=== PATIENT | female | born 1975 | race American Indian/Alaskan Native ===

== ENCOUNTER 2017-12-13 05:44 | Emergency (ER) | payer MEDICARE, OTHER ==
[2017-12-13 06:38] VITALS: BP 121/66
[2017-12-13] MEDS ORDERED: NACL 0.9% 1000 ML 1,000 ML IV ONE (06:38)
[2017-12-13 07:05] LABS: Bilirubin,Urine NEG (Negative); Blood,Urine NEG (Negative); Color,Urine Yellow (Yellow); HCG Qualitative,Urine Negative (Negative); Protein,Urine <15 mg/dL mg/dL (Negative); Urobilinogen,Urine < 2.0 mg/dL (<2.0); WBC,Urine < 1.0 /HPF (0.0-6.0)
== END 2017-12-13 19:20 | disposition left against medical advice (07) ==
LOC: ED 05:44
DX: R10.9 Unspecified abdominal pain (principal); Z53.21 Procedure and treatment not carried out due to patient leaving prior to being seen by health care provider
CPT/HCPCS: 81001; 81025

== ENCOUNTER 2018-05-20 13:47 | Emergency (ER) | payer MEDICARE, OTHER ==
[2018-05-20 14:19] VITALS: BP 128/73
--- NOTE | 2018-05-20 15:42 | Emergency Department Report ---
- General Chief Complaint: Upper Respiratory Infection Stated Complaint: FLU SYMPTOMS/SOB Time Seen by Provider: 05/20/18 15:06 Source: patient Mode of arrival: Ambulatory Limitations: No Limitations - History of Present Illness Initial Comments: 43-year-old female with a past medical history htn and hyperlipidemia presents to the Hospital complaining of URI symptoms 2 weeks. She's had a productive cough, sneezing, stuffy nose, and sinus congestion. She states taking TheraFlu and Mucinex without improvement. A child in the family and RSV several other family had cold symptoms. Patient complains of intermittent wheezing and shortness of breath. She denies a history of asthma or tobacco use. Has had wheezing with bronchitis in the past. No fever reported. Pulse ox 96% on room air not 20 as documented by triage.. - Related Data Home Medications Medication Instructions Recorded Confirmed Last Taken Atorvastatin Calcium [Lipitor] 10 mg PO QDAY 03/29/14 03/29/14 Unknown Bromocriptine [Parlodel] 10 mg PO QDAY 03/29/14 03/29/14 Unknown Doxepin HCl 50 mg PO QHS 03/29/14 03/29/14 Unknown Eszopiclone 2 mg PO QHS 03/29/14 03/29/14 Unknown Naproxen [Naprosyn TAB] 500 mg PO BID PRN 03/29/14 03/29/14 Unknown Topiramate [Topamax TAB] 25 mg PO QAM 03/29/14 03/29/14 Unknown Topiramate [Topamax TAB] 50 mg PO QHS 03/29/14 03/29/14 Unknown lamoTRIgine [LaMICtal] 75 mg PO QHS 03/29/14 03/29/14 Unknown traZODone [Desyrel] 50 mg PO QHS 03/29/14 03/29/14 Unknown Previous Rx's Medication Instructions Recorded Last Taken Type Albuterol Sulfate [Ventolin HFA] 2 puff IH Q4H PRN #1 hfa.aer.ad 05/20/18 Unknown Rx Azithromycin [Zithromax Z-RAE] 1 dose PO DAILY 5 Days tab 05/20/18 Unknown Rx Benzonatate [Tessalon Perles] 1 - 2 tab PO Q8HR PRN #30 capsule 05/20/18 Unknown Rx Prednisone [predniSONE 10 mg 10 mg PO .TAPER #1 tab.ds.pk 05/20/18 Unknown Rx (6-Day Pack, 21 Tabs)] Sodium Chloride [Saline Nasal 2 ml NS PRN PRN #1 bottle 05/20/18 Unknown Rx [place]] Allergies Allergy/AdvReac Type Severity Reaction Status Date / Time aripiprazole [From Abilify] AdvReac SPASMS Verified 03/29/14 15:43 codeine AdvReac Swelling Verified 03/29/14 15:43 fluphenazine enanthate AdvReac THRUSH Verified 03/29/14 15:43 [From Prolixin] fluphenazine HCl AdvReac THRUSH Verified 03/29/14 15:43 [From Prolixin] ED Review of Systems ROS: Stated complaint: FLU SYMPTOMS/SOB Other details as noted in HPI Comment: All other systems reviewed and negative ED Past Medical Hx - Past Medical History Hx Hypertension: Yes Hx Psychiatric Treatment: Yes Additional medical history: Hyperlipidemia. Galactorrhea - Surgical History Hx Cholecystectomy: Yes (09/2012) Additional Surgical History: Hernia repair. Liposuction - Social History Smoking Status: Unknown if ever smoked Substance Use Type: None - Medications Home Medications: Home Medications Medication Instructions Recorded Confirmed Last Taken Type Atorvastatin Calcium [Lipitor] 10 mg PO QDAY 03/29/14 03/29/14 Unknown History Bromocriptine [Parlodel] 10 mg PO QDAY 03/29/14 03/29/14 Unknown History Doxepin HCl 50 mg PO QHS 03/29/14 03/29/14 Unknown History Eszopiclone 2 mg PO QHS 03/29/14 03/29/14 Unknown History Naproxen [Naprosyn TAB] 500 mg PO BID PRN 03/29/14 03/29/14 Unknown History Topiramate [Topamax TAB] 25 mg PO QAM 03/29/14 03/29/14 Unknown History Topiramate [Topamax TAB] 50 mg PO QHS 03/29/14 03/29/14 Unknown History lamoTRIgine [LaMICtal] 75 mg PO QHS 03/29/14 03/29/14 Unknown History traZODone [Desyrel] 50 mg PO QHS 03/29/14 03/29/14 Unknown History Albuterol Sulfate [Ventolin HFA] 2 puff IH Q4H PRN #1 hfa.aer.ad 05/20/18 Unknown Rx Azithromycin [Zithromax Z-RAE] 1 dose PO DAILY 5 Days tab 05/20/18 Unknown Rx Benzonatate [Tessalon Perles] 1 - 2 tab PO Q8HR PRN #30 capsule 05/20/18 Unknown Rx Prednisone [predniSONE 10 mg 10 mg PO .TAPER #1 tab.ds.pk 05/20/18 Unknown Rx (6-Day Pack, 21 Tabs)] Sodium Chloride [Saline Nasal 2 ml NS PRN PRN #1 bottle 05/20/18 Unknown Rx [place]] ED Physical Exam - General Limitations: No Limitations - Other Other exam information: General: No limitations, patient is alert in no acute distress Head exam: Atraumatic, normocephalic Eyes exam: Normal appearance, pupils equal reactive to light, extraocular movements intact ENT: Moist mucous membrane, normal oropharynx. Mild bilateral maxillary sinus tenderness. Nasal congestion Neck exam: Normal inspection, full range of motion, no meningismus nontender Respiratory exam: Clear to auscultation bilateral, no wheezes, rales, crackles Cardiovascular: Normal rate and rhythm, normal heart sounds Abdomen: Soft, nondistended, and nontender, with normal bowel sounds, no rebound, or guarding Extremity: Full range of motion normal inspection no deformity Back: Normal Inspection, full range of motion, no tenderness Neurologic: Alert, oriented x3, cranial nerves intact, no motor or sensory deficit Psychiatric: normal affect, normal mood Skin: Warm, dry, intact ED Course Vital Signs 05/20/18 14:16 Temperature 97.9 F Pulse Rate 90 Respiratory 20 Rate Blood Pressure 128/73 O2 Sat by Pulse 20 L Oximetry ED Medical Decision Making - Radiology Data Radiology results: report reviewed cxr: naf - Differential Diagnosis bronchitis, URI, sinusitis Critical Care Time: No Critical care attestation.: If time is entered above; I have spent that time in minutes in the direct care of this critically ill patient, excluding procedure time. ED Disposition Clinical Impression: Acute bronchitis, Sinusitis, URI (upper respiratory infection) Disposition: TO HOME OR SELFCARE Is pt being admited?: No Does the pt Need Aspirin: No Condition: Stable Instructions: Acute Bronchitis (ED), Sinusitis (ED) Additional Instructions: Take the medication as prescribed. Follow up with your doctor or the doctor/clinic provided. Return if symptoms worsen as indicated by your discharge instructions Prescriptions: Albuterol Sulfate [Ventolin HFA] 2 puff IH Q4H PRN #1 hfa.aer.ad PRN Reason: Shortness Of Breath Azithromycin [Zithromax Z-RAE] 1 dose PO DAILY 5 Days tab Benzonatate [Tessalon Perles] 1 - 2 tab PO Q8HR PRN #30 capsule PRN Reason: Cough Prednisone [predniSONE 10 mg (6-Day Pack, 21 Tabs)] 10 mg PO .TAPER #1 tab.ds.pk Sodium Chloride [Saline Nasal [place]] 2 ml NS PRN PRN #1 bottle PRN Reason: Nasal Congestion Referrals: PRIMARY CAREMD [Primary Care Provider] - 3-5 Days [facility] [Provider Group] - 3-5 Days SHRUTHI SIMPSON MD [Staff Physician] - 3-5 Days Time of Disposition: 16:49
--- NOTE | 2018-05-20 16:16 | XRay Report ---
FINAL REPORT EXAM: XR CHEST ROUTINE 2V HISTORY: cough TECHNIQUE: Frontal and lateral chest radiographs. PRIORS: None. FINDINGS: The cardiomediastinal silhouette is normal. No focal consolidation. No pleural effusion. No pneumothorax. No acute osseous abnormality. IMPRESSION: No acute cardiopulmonary process.
== END 2018-05-20 17:01 | disposition home or self-care (01) ==
LOC: ED 13:47
DX: J20.9 Acute bronchitis, unspecified (principal); J32.0 Chronic maxillary sinusitis; J06.9 Acute upper respiratory infection, unspecified; I10 Essential (primary) hypertension; E78.5 Hyperlipidemia, unspecified; Z90.49 Acquired absence of other specified parts of digestive tract; Z88.6 Allergy status to analgesic agent; Z88.8 Allergy status to other drugs, medicaments and biological substances
CPT/HCPCS: 71046; 99283

== ENCOUNTER 2019-06-10 03:31 | Emergency (ER) | payer MEDICARE, OTHER | END 2019-06-10 03:45 | disposition left against medical advice (07) | LOC: ED 03:31 | DX: R69 Illness, unspecified (principal); Z53.21 Procedure and treatment not carried out due to patient leaving prior to being seen by health care provider ==

== ENCOUNTER 2019-06-11 03:01 | Emergency (ER) | payer MEDICARE, OTHER | END 2019-06-11 03:21 | LOC: ED 03:01 | DX: Z32.00 Encounter for pregnancy test, result unknown (principal); Z53.21 Procedure and treatment not carried out due to patient leaving prior to being seen by health care provider ==

== ENCOUNTER 2019-06-11 23:54 | Emergency (ER) | payer MEDICARE, OTHER ==
[2019-06-12 01:04] LABS: Bilirubin,Urine NEG (Negative); Blood,Urine MOD (Negative); Color,Urine Colorless (Yellow); Protein,Urine <15 mg/dL mg/dL (Negative); Urobilinogen,Urine < 2.0 mg/dL (<2.0); WBC,Urine < 1.0 /HPF (0.0-6.0)
[2019-06-12 01:09] LABS: Amphetamine Screen,Urine PRESUMPTIVE NEGATIVE; Benzodiazepines Screen,Urine PRESUMPTIVE NEGATIVE; Cannabinoid Screen,Urine PRESUMPTIVE NEGATIVE; Cocaine Screen,Urine PRESUMPTIVE NEGATIVE; Methadone Screen,Urine PRESUMPTIVE NEGATIVE; Opiate Screen,Urine PRESUMPTIVE NEGATIVE
[2019-06-12 01:22] LABS: RBC,Urine < 1.0 /HPF (0.0-6.0)
[2019-06-12] MEDS ORDERED: LORazepam 2 MG/ML VIAL IM PRN (01:38)
[2019-06-12] MEDS ORDERED: HALOPERIDOL LACTATE 5 MG/1 ML INJ IM PRN (01:38)
[2019-06-12] MEDS ORDERED: LORazepam 2 MG/ML VIAL ONE (01:40)
[2019-06-12] MEDS ORDERED: HALOPERIDOL LACTATE 5 MG/1 ML INJ ONE (01:40)
--- NOTE | 2019-06-12 01:40 | Emergency Department Report ---
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 She is not known to myself previously. She apparently has a history of hypertension, and psychosis. The patient presents to this emergency room very disorganized. Apparently, she has been here multiple times over the past few days, walking in and out of the waiting room. As per verbal report from nursing team, patient would intermittently become angry, verbally belligerent, and she would look over other patients shoulders while they were at the registration window registering. Apparently, she came to the ER stating that she was . I asked the [place] why she came here for test when she could purchase a test [id number], and she was not able to answer my question. She stated that "I have insurance, and God will take care of it." She also states that she lives "in [facility]." She further states "I do not have to answer any of your questions because I do not answer to you." She is not accompanied by friends or family at this time. The patient does not respond to verbal de-escalation techniques or verbal show of force. She appears to be floridly psychotic, and has not demonstrated the ability to independently care for herself. She does not have rational decision-making capability at this time. She is not able to describe exacerbating or relieving factors, or qualitative nature of her symptoms. -: unknown Radiation: other Quality: other Consistency: other Improves with: other Worsens with: other - Related Data Home Medications Medication Instructions Recorded Confirmed Last Taken Atorvastatin Calcium [Lipitor] 10 mg PO QDAY 03/29/14 06/13/19 Unknown Bromocriptine [Parlodel] 10 mg PO QDAY 03/29/14 06/13/19 Unknown Doxepin HCl 50 mg PO QHS 03/29/14 06/13/19 Unknown Eszopiclone 2 mg PO QHS 03/29/14 06/13/19 Unknown Naproxen [Naprosyn TAB] 500 mg PO BID PRN 03/29/14 06/13/19 Unknown Topiramate [Topamax TAB] 25 mg PO QAM 03/29/14 06/13/19 Unknown Topiramate [Topamax TAB] 50 mg PO QHS 03/29/14 06/13/19 Unknown lamoTRIgine [LaMICtal] 75 mg PO QHS 03/29/14 06/13/19 Unknown traZODone [Desyrel] 50 mg PO QHS 03/29/14 06/13/19 Unknown Previous Rx's Medication Instructions Recorded Last Taken Type Albuterol Sulfate [Ventolin HFA] 2 puff IH Q4H PRN #1 hfa.aer.ad 05/20/18 Unknown Rx Azithromycin [Zithromax Z-REA] 1 dose PO DAILY 5 Days tab 05/20/18 Unknown Rx Benzonatate [Tessalon Perles] 1 - 2 tab PO Q8HR PRN #30 capsule 05/20/18 Unknown Rx Prednisone [predniSONE 10 mg 10 mg PO .TAPER #1 tab.ds.pk 05/20/18 Unknown Rx (6-Day Pack, 21 Tabs)] Sodium Chloride [Saline Nasal 2 ml NS PRN PRN #1 bottle 05/20/18 Unknown Rx [place]] Allergies Allergy/AdvReac Type Severity Reaction Status Date / Time aripiprazole [From Abilify] AdvReac SPASMS Verified 03/29/14 15:43 codeine AdvReac Swelling Verified 03/29/14 15:43 fluphenazine enanthate AdvReac THRUSH Verified 03/29/14 15:43 [From Prolixin] fluphenazine HCl AdvReac THRUSH Verified 03/29/14 15:43 [From Prolixin] ED Review of Systems ROS: Stated complaint: MH EVALUATION Other details as noted in HPI Comment: Unobtainable due to pts medical conditions (The patient denies physical pain and insists that she is ) ED Past Medical Hx - Past Medical History Previous Medical History?: No Hx Hypertension: No Hx Psychiatric Treatment: No Additional medical history: Pt denies any hx. - Surgical History Past Surgical History?: No Hx Cholecystectomy: Yes (09/2012) Additional Surgical History: Hernia repair. Liposuction. Pt denies hx. - Social History Smoking Status: Never Smoker Substance Use Type: None - Medications Home Medications: Home Medications Medication Instructions Recorded Confirmed Last Taken Type Atorvastatin Calcium [Lipitor] 10 mg PO QDAY 03/29/14 06/13/19 Unknown History Bromocriptine [Parlodel] 10 mg PO QDAY 03/29/14 06/13/19 Unknown History Doxepin HCl 50 mg PO QHS 03/29/14 06/13/19 Unknown History Eszopiclone 2 mg PO QHS 03/29/14 06/13/19 Unknown History Naproxen [Naprosyn TAB] 500 mg PO BID PRN 03/29/14 06/13/19 Unknown History Topiramate [Topamax TAB] 25 mg PO QAM 03/29/14 06/13/19 Unknown History Topiramate [Topamax TAB] 50 mg PO QHS 03/29/14 06/13/19 Unknown History lamoTRIgine [LaMICtal] 75 mg PO QHS 03/29/14 06/13/19 Unknown History traZODone [Desyrel] 50 mg PO QHS 03/29/14 06/13/19 Unknown History Albuterol Sulfate [Ventolin HFA] 2 puff IH Q4H PRN #1 hfa.aer.ad 05/20/18 06/13/19 Unknown Rx Azithromycin [Zithromax Z-RAE] 1 dose PO DAILY 5 Days tab 05/20/18 06/13/19 Unknown Rx Benzonatate [Tessalon Perles] 1 - 2 tab PO Q8HR PRN #30 capsule 05/20/18 06/13/19 Unknown Rx Prednisone [predniSONE 10 mg 10 mg PO .TAPER #1 tab.ds.pk 05/20/18 06/13/19 Un known Rx (6-Day Pack, 21 Tabs)] Sodium Chloride [Saline Nasal 2 ml NS PRN PRN #1 bottle 05/20/18 06/13/19 Unknown Rx [place]] ED Physical Exam - General Limitations: Other (Patient is psychotic and disorganized, and initially refuses examination) General appearance: in no apparent distress, anxious, obese - Head Head exam: Present: atraumatic, normocephalic - Eye Eye exam: Present: normal appearance, EOMI. Absent: nystagmus - ENT ENT exam: Present: normal exam, normal orophraynx, mucous membranes moist, normal external ear exam - Neck Neck exam: Present: normal inspection, full ROM. Absent: tenderness, meningismus - Respiratory Respiratory exam: Present: normal lung sounds bilaterally. Absent: respiratory distress - Cardiovascular Cardiovascular Exam: Present: regular rate, normal rhythm, normal heart sounds. Absent: bradycardia, tachycardia, irregular rhythm, systolic murmur, diastolic murmur, rubs, gallop - GI/Abdominal GI/Abdominal exam: Present: soft. Absent: distended, tenderness, guarding, rebound, rigid, pulsatile mass - Extremities Exam Extremities exam: Present: normal inspection, full ROM, other (2+ pulses noted in the bilateral upper and lower extremities. There is no palpable cord. negative [place] sign. Muscular compartments are soft. The pelvis is stable.). Absent: pedal edema, calf tenderness - Back Exam Back exam: Present: normal inspection, full ROM. Absent: tenderness, CVA tenderness (R), CVA tenderness (L), paraspinal tenderness, vertebral tenderness - Neurological Exam Neurological exam: Present: alert (Patient is alert to name, month and location. The patient's thought processes are logical. The patient does not demonstrate decision-making capacity. She will not comment on homicidality, suicidality or hallucinations), other (There is no facial droop. The tongue is midline. The extraocular movements are intact bilaterally. Moving 4 extremities spontaneously, speaking in complete sentences, although thought content nonsensical and illogical) - Psychiatric Psychiatric exam: Present: agitated, anxious - Skin Skin exam: Present: warm, dry, intact, normal color. Absent: rash ED Course Vital Signs 06/12/19 06/12/19 06/12/19 01:38 02:43 19:45 Temperature 97.6 F 98.5 F Pulse Rate 72 68 Respiratory 18 16 20 Rate Blood Pressure 102/39 107/41 [Right] O2 Sat by Pulse 95 97 100 Oximetry - Reevaluation(s) Reevaluation #1: 06/12/19 02:29 Differential diagnosis, including but not limited to: Psychosis, disorganized behavior, medical clearance for psychiatric placement Assessment and plan: 44-year-old female who is obviously psychotic, requires emergent psychiatric consultation and stabilization. She is placed on a 1013. She requires medication with haloperidol and Ativan to obtain vital signs, and acquire emergent diagnostic laboratory studies to exclude time sensitive toxicologic ingestions. Attempted to explain this to the patient, but she indicated that she would stop listening to me, and she does not exhibit decision-making capacity at this time. Laboratory studies, vital signs, psychiatric consultation pending. Reevaluation #2: 06/12/19 04:10 Patient resting comfortably 4 hours, in no acute distress. Laboratory studies reviewed and appreciated. They are fairly unremarkable. Patient will be initiated on potassium replacement therapy orally. CK of 500 reviewed and appreciated, not consistent with rhabdomyolysis, and will decrease on its own with rest and oral hydration, does not require additional intervention at this time. At this point in time, patient does not appear to have an immediate medical contraindication To psychiatric admission, evaluation, consultation and placement. ED Medical Decision Making - Lab Data Result diagrams: 06/12/19 03:24 06/12/19 03:24 Vital Signs 06/12/19 02:43 Temperature 97.6 F Pulse Rate 72 Respiratory 16 Rate Blood Pressure 102/39 [Right] O2 Sat by Pulse 97 Oximetry Lab Results 06/12/19 06/12/19 06/12/19 Range/Units 00:15 00:15 01:39 WBC (4.5-11.0) K/mm3 RBC (3.65-5.03) M/mm3 Hgb (10.1-14.3) gm/dl Hct (30.3-42.9) % MCV (79-97) fl MCH (28-32) pg MCHC (30-34) % RDW (13.2-15.2) % Plt Count (140-440) K/mm3 Sodium (137-145) mmol/L Chloride (98-107) mmol/L Carbon Dioxide (22-30) mmol/L Anion Gap mmol/L BUN (7-17) mg/dL Creatinine (0.7-1.2) mg/dL Estimated GFR ml/min BUN/Creatinine Ratio % Glucose (65-100) mg/dL Calcium (8.4-10.2) mg/dL Magnesium (1.7-2.3) mg/dL Total Creatine Kinase (30-135) units/L HCG, Quant (0-4) mIU/mL Urine Color Colorless (Yellow) Urine Turbidity Clear (Clear) Urine pH 6.0 (5.0-7.0) Ur Specific [place] 1.000 L (1.003-1.030) Urine Protein <15 mg/dl (Negative) mg/dL Urine Glucose (UA) Neg (Negative) mg/dL Urine Ketones Neg (Negative) mg/dL Urine Blood Mod (Negative) Urine Nitrite Neg (Negative) Urine Bilirubin Neg (Negative) Urine Urobilinogen < 2.0 (<2.0) mg/dL Ur Leukocyte Esterase Neg (Negative) Urine WBC (Auto) < 1.0 (0.0-6.0) /HPF Urine RBC (Auto) < 1.0 (0.0-6.0) /HPF Urine HCG, Qual Negative (Negative) Salicylates (2.8-20.0) mg/dL Urine Opiates Screen Presumptive negative Urine Methadone Screen Presumptive negative Acetaminophen (10.0-30.0) ug/mL Ur Barbiturates Screen Presumptive negative Ur Phencyclidine Scrn Presumptive negative Ur Amphetamines Screen Presumptive negative U Benzodiazepines Scrn Presumptive negative Urine Cocaine Screen Presumptive negative U Marijuana (THC) Screen Presumptive negative Drugs of Abuse Note Disclamer Plasma/Serum Alcohol (0-0.07) % 06/12/19 06/12/19 06/12/19 Range/Units 03:24 03:24 03:24 WBC (4.5-11.0) K/mm3 RBC (3.65-5.03) M/mm3 Hgb (10.1-14.3) gm/dl Hct (30.3-42.9) % MCV (79-97) fl MCH (28-32) pg MCHC (30-34) % RDW (13.2-15.2) % Plt Count (140-440) K/mm3 Sodium 138 (137-145) mmol/L Chloride 99.7 (98-107) mmol/L Carbon Dioxide 28 (22-30) mmol/L Anion Gap 13 mmol/L BUN 9 (7-17) mg/dL Creatinine 0.6 L (0.7-1.2) mg/dL Estimated GFR > 60 ml/min BUN/Creatinine Ratio 15 % Glucose 106 H (65-100) mg/dL Calcium 8.4 (8.4-10.2) mg/dL Magnesium (1.7-2.3) mg/dL Total Creatine Kinase (30-135) units/L HCG, Quant (0-4) mIU/mL Urine Color (Yellow) Urine Turbidity (Clear) Urine pH (5.0-7.0) Ur Specific [place] (1.003-1.030) Urine Protein (Negative) mg/dL Urine Glucose (UA) (Negative) mg/dL Urine Ketones (Negative) mg/dL Urine Blood (Negative) Urine Nitrite (Negative) Urine Bilirubin (Negative) Urine Urobilinogen (<2.0) mg/dL Ur Leukocyte Esterase (Negative) Urine WBC (Auto) (0.0-6.0) /HPF Urine RBC (Auto) (0.0-6.0) /HPF Urine HCG, Qual (Negative) Salicylates < 0.3 L (2.8-20.0) mg/dL Urine Opiates Screen Urine Methadone Screen Acetaminophen < 5.0 L (10.0-30.0) ug/mL Ur Barbiturates Screen Ur Phencyclidine Scrn Ur Amphetamines Screen U Benzodiazepines Scrn Urine Cocaine Screen U Marijuana (THC) Screen Drugs of Abuse Note Plasma/Serum Alcohol (0-0.07) % 06/12/19 06/12/19 06/12/19 Range/Units 03:24 03:24 03:24 WBC 4.7 (4.5-11.0) K/mm3 RBC 4.46 (3.65-5.03) M/mm3 Hgb 12.6 (10.1-14.3) gm/dl Hct 38.0 (30.3-42.9) % MCV 85 (79-97) fl MCH 28 (28-32) pg MCHC 33 (30-34) % RDW 13.7 (13.2-15.2) % Plt Count 383 (140-440) K/mm3 Sodium (137-145) mmol/L Chloride (98-107) mmol/L Carbon Dioxide (22-30) mmol/L Anion Gap mmol/L BUN (7-17) mg/dL Creatinine (0.7-1.2) mg/dL Estimated GFR ml/min BUN/Creatinine Ratio % Glucose (65-100) mg/dL Calcium (8.4-10.2) mg/dL Magnesium 2.00 (1.7-2.3) mg/dL Total Creatine Kinase 521 H (30-135) units/L HCG, Quant (0-4) mIU/mL Urine Color (Yellow) Urine Turbidity (Clear) Urine pH (5.0-7.0) Ur Specific [place] (1.003-1.030) Urine Protein (Negative) mg/dL Urine Glucose (UA) (Negative) mg/dL Urine Ketones (Negative) mg/dL Urine Blood (Negative) Urine Nitrite (Negative) Urine Bilirubin (Negative) Urine Urobilinogen (<2.0) mg/dL Ur Leukocyte Esterase (Negative) Urine WBC (Auto) (0.0-6.0) /HPF Urine RBC (Auto) (0.0-6.0) /HPF Urine HCG, Qual (Negative) Salicylates (2.8-20.0) mg/dL Urine Opiates Screen Urine Methadone Screen Acetaminophen (10.0-30.0) ug/mL Ur Barbiturates Screen Ur Phencyclidine Scrn Ur Amphetamines Screen U Benzodiazepines Scrn Urine Cocaine Screen U Marijuana (THC) Screen Drugs of Abuse Note Plasma/Serum Alcohol < 0.01 (0-0.07) % 06/12/19 Range/Units 03:24 WBC (4.5-11.0) K/mm3 RBC (3.65-5.03) M/mm3 Hgb (10.1-14.3) gm/dl Hct (30.3-42.9) % MCV (79-97) fl MCH (28-32) pg MCHC (30-34) % RDW (13.2-15.2) % Plt Count (140-440) K/mm3 Sodium (137-145) mmol/L Chloride (98-107) mmol/L Carbon Dioxide (22-30) mmol/L Anion Gap mmol/L BUN (7-17) mg/dL Creatinine (0.7-1.2) mg/dL Estimated GFR ml/min BUN/Creatinine Ratio % Glucose (65-100) mg/dL Calcium (8.4-10.2) mg/dL Magnesium (1.7-2.3) mg/dL Total Creatine Kinase (30-135) units/L HCG, Quant < 2 (0-4) mIU/mL Urine Color (Yellow) Urine Turbidity (Clear) Urine pH (5.0-7.0) Ur Specific [place] (1.003-1.030) Urine Protein (Negative) mg/dL Urine Glucose (UA) (Negative) mg/dL Urine Ketones (Negative) mg/dL Urine Blood (Negative) Urine Nitrite (Negative) Urine Bilirubin (Negative) Urine Urobilinogen (<2.0) mg/dL Ur Leukocyte Esterase (Negative) Urine WBC (Auto) (0.0-6.0) /HPF Urine RBC (Auto) (0.0-6.0) /HPF Urine HCG, Qual (Negative) Salicylates (2.8-20.0) mg/dL Urine Opiates Screen Urine Methadone Screen Acetaminophen (10.0-30.0) ug/mL Ur Barbiturates Screen Ur Phencyclidine Scrn Ur Amphetamines Screen U Benzodiazepines Scrn Urine Cocaine Screen U Marijuana (THC) Screen Drugs of Abuse Note Plasma/Serum Alcohol (0-0.07) % Critical care attestation.: If time is entered above; I have spent that time in minutes in the direct care of this critically ill patient, excluding procedure time. ED Disposition Clinical Impression: Medical clearance for psychiatric admission, Disorganized behavior Disposition: [id number]/TX-[id number] PSY HOSP/PSY UNIT Is pt being admited?: No Does the pt Need Aspirin: No Condition: Good Referrals: PRIMARY CARE, [Primary Care Provider] - 3-5 Days
[2019-06-12 01:57] LABS: HCG Qualitative,Urine Negative (Negative)
[2019-06-12] MEDS ORDERED: ZIPRASIDONE MESYLATE 20 MG VIAL IM PRN (02:25)
[2019-06-12 03:43] LABS: Hemoglobin 12.6 gm/dl (10.1-14.3); Mean Corpuscular HGB Conc 33 % (30-34); Mean Corpuscular Volume 85 fl (79-97); Platelet Count 383 K/mm3 (140-440); Red Blood Count 4.46 M/mm3 (3.65-5.03); Red Cell Distribution Width 13.7 % (13.2-15.2)
[2019-06-12 04:01] LABS: BUN/Creatinine Ratio 15; Blood Urea Nitrogen 9 mg/dL (7-17); Calcium 8.4 mg/dL (8.4-10.2); Hemolysis Index 4
[2019-06-12] MEDS ORDERED: POTASSIUM CHLORIDE ER 20 MEQ TAB PO SCH (10:00)
[2019-06-12 19:49] VITALS: BP 107/41
== END 2019-06-12 21:22 ==
LOC: ED 23:54
DX: Z00.8 Encounter for other general examination (principal); F20.1 Disorganized schizophrenia; I10 Essential (primary) hypertension; Z88.6 Allergy status to analgesic agent; Z88.8 Allergy status to other drugs, medicaments and biological substances; Z79.899 Other long term (current) drug therapy; Z90.49 Acquired absence of other specified parts of digestive tract; Z98.890 Other specified postprocedural states
CPT/HCPCS: 36415; 80048; 80307; 81001; 81025; 82550; 83735; 84702; 85027; 96372; 99284; J1630; J2060; J3486; 80320; G0480